=== PATIENT | male | born 1945 | race Caucasian/White ===

== ENCOUNTER 2017-08-13 08:14 | Inpatient (IN) ==
--- NOTE | 2017-08-13 08:51 | Anesthesia Evaluation PreOp ---
Date of Encounter: 08/13/17 Time of Encounter: 08:50
[2017-08-13] MEDS ORDERED: CeFAZolin Syr 2,000MG/20 ML 2,000 MG/20 ML SYRINGE IVPB ONE (09:07)
[2017-08-13] MEDS ORDERED: Heparin 1,000 UNITS/500 mL 500 ML ONE ×2 (09:14→10:04)
[2017-08-13] MEDS ORDERED: Ringers Solution, Lactated 1,000 ML IVC SCH (09:15)
[2017-08-13] MEDS ORDERED: Albuterol 2.5 MG/3 ML NEBULIZER IH ONE ×2 (09:25→14:07)
[2017-08-13] MEDS ORDERED: Albuterol 2.5 MG/3 ML NEBULIZER ONE (09:26)
--- NOTE | 2017-08-13 09:27 | Anesthesia Evaluation PreOp ---
Date of Encounter: 08/13/17 Time of Encounter: 09:25 - Past History Planned Operation: Right CEA Cardiac History: HTN, Hyperlipidemia, Arrhythmia, Cardiac Surgery (CABG 2000), Other (AAA) Pulmonary History: Smoker, Pack/yr (1.5 ppd (down from 3 ppd) x 55 years), COPD (Chronic rep. failure - on Home O2 - used only when he feels like he is short of Breath), Other (Lung nodule) PSYCHOMETRICIAN History: Other (Diabetic Neuropathy) Other Medical History: Hepatic (Hep A 1968), Diabetes Type II, GERD, Other ( Squamous cell CA scalp,) Anesthesia History: No Prior Anesthetic Complications, Past Anesthesia (CABG, finger reattachment) Alcohol Use: none Drug use: none Medications and Allergies Acetaminophen [Tylenol] 325 mg PO Q6HR PRN 08/13/17 [History] Albuterol Sulfate [Albuterol Inhaler] 2 puff IH Q4HR PRN 08/13/17 [History] Aspirin [Lo-Dose Aspirin EC] 81 mg PO DAILY 08/13/17 [History] Atorvastatin [Lipitor] 40 mg PO HS 08/13/17 [History] Budesonide/Formoterol 160/4.5 [Symbicort 160/4.5] 2 puff IH BIDR 08/13/17 [ History] Cholecalciferol (D-3) [Vitamin D] 1,000 unit PO DAILY 08/13/17 [History] Clopidogrel [Plavix] 75 mg PO DAILY 08/13/17 [History] Docusate [Colace] 200 mg PO DAILY 08/13/17 [History] Gabapentin [Neurontin] 900 mg PO BID 08/13/17 [History] Ipratropium/Albuterol Neb [Duoneb] 3 ml IH Q6HR PRN 08/13/17 [History] Losartan [Cozaar] 75 mg PO DAILY 08/13/17 [History] Metformin HCl [Glucophage] 1,000 mg PO BID 08/13/17 [History] Methocarbamol [Robaxin-750] 750 mg PO BID PRN 08/13/17 [History] Metoprolol [Lopressor] 50 mg PO BID 08/13/17 [History] Morphine Immed Rel [Morphine Sulfate] 15 mg PO TID PRN 08/13/17 [History] Multivitamin [One Daily Essential] 1 tab PO DAILY 08/13/17 [History] Pantoprazole Sodium [Protonix] 40 mg PO BID 08/13/17 [History] Tamsulosin [Flomax] 0.4 mg PO DAILY 08/13/17 [History] 3 Allergy/AdvReac Type Severity Reaction Status Date / Time No Known Allergies Allergy Verified 08/13/17 09:35 - Meds/Allergy Pre-op Review Medications Reviewed: Yes Allergies Reviewed: Yes Beta Blockers on Current Med List: Yes If Beta Blockers taken, Date/Time (Last Dose taken): 17:00 08/12/2017 Anesthesia Results - Labs Laboratory Tests 08/11/17 08/11/17 08/11/17 11:33 11:33 11:33 WBC 6.4 Hgb 13.3 Hct 42.0 Plt Count 173 INR 0.9 Sodium 137 Potassium 4.2 Chloride 100 Carbon Dioxide 28 BUN 15 Creatinine 0.96 - Imaging EKG: report reviewed (SR, REBECCA) Chest x-ray: report reviewed Anesthesia Exam O2 Sat Height 1.75 m Height 1.75 m Height 1.75 m Weight 75.75 kg Weight 75.75 kg Weight 75.75 kg O2 Sat by Pulse Oximetry 95 O2 Sat by Pulse Oximetry 95 Vital Signs Temp Pulse Resp BP Pulse Ox 97.9 F 91 18 131/71 95 08/13/17 08:52 08/13/17 08:52 08/13/17 08:52 08/13/17 08:52 08/13/17 08:52 Height: 5'9'' Weight: 167# NPO (# of Hours): > 8 hrs Pain Scale: 0 Pain Scale Used: Numeric (1 - 10) - HEENT Pupil (Motor): Pupils equal, EOMI Mallampati: I Teeth: Normal Oral Opening: Greater than 3 - PSYCHOMETRICIAN LOC: Oriented PSYCHOMETRICIAN Motor: Normal RUE, Normal LUE, Normal RLE, Normal LLE, Normal Face PSYCHOMETRICIAN Sensory: Normal: RUE, LUE, RLE, LLE, Face - Cardiac Rhythm: Regular Murmur: None JVD: No Carotid Bruit: No - Pulmonary Breath Sounds: bilateral Clear Respiratory Effort: Symmetrical - Additional Findings Last dose of Plavix 08/10/2017 Anesthesia Assess/Plan ASA Score: 4 Modified Buckner Scale for Level of Consciousness: Cooperative, oriented, and tranquil Anesthetic Plan: General Autologous Blood: Yes Monitoring Plan: Standard Monitors, A-Line Recovery Plan: PACU
--- NOTE | 2017-08-13 09:42 | History & Physical Report ---
Date of Encounter: 08/13/17 Time of Encounter: 09:41 24 Hour HP Update - Instructions Instructions: If the History and Physical is less than 30 days old and was completed prior to A.M. admission and or procedure and has NOT been updated on calendar day of procedure please complete this update prior to performing procedure. - Update Patient reports changes in Medical Condition: No Changes in examination, assessment, or condition: No Changes in Medication: No Preop tests/diagnostics Reviewed: Yes Surgery Remains Indicated: Yes Consent for Planned Operative Procedure(s) Verified: Yes - Pre-Operative Checklist Preoperative Checklist Indicated: Yes Prophylactic Antibiotic Ordered: Yes Is VTE Prophylaxis Indicated?: Yes
[2017-08-13] MEDS ORDERED: *HR* Propofol 200 MG/20 ML VIAL IVP ONE (09:49)
[2017-08-13] MEDS ORDERED: Ondansetron 4 MG/2 ML VIAL ONE (09:50)
[2017-08-13] MEDS ORDERED: Dexamethasone 4 MG/ML VIAL ONE (09:50)
[2017-08-13] MEDS ORDERED: *HR* Rocuronium Bromide 50 MG/5 ML VIAL ONE ×2 (09:50→11:56)
[2017-08-13] MEDS ORDERED: Lidocaine -MPF 2% 2 ML VIAL ONE (09:50)
[2017-08-13] MEDS ORDERED: *HR* Succinylcholine 200 MG/10 ML VIAL IVP ONE (09:50)
[2017-08-13] MEDS ORDERED: *HR* FentaNYL (PF) 100 MCG/2 ML VIAL ONE (09:52)
[2017-08-13] MEDS ORDERED: *HR* Midazolam HCl 2 MG/2 ML VIAL ONE (09:53)
[2017-08-13] MEDS ORDERED: EPHEDrine 50 MG/ML VIAL ONE (09:54)
[2017-08-13] MEDS ORDERED: Nitroglycerin 0 MG/0 ML INFUS..BTL IVC ONE (10:00)
[2017-08-13] MEDS ORDERED: Lidocaine 1% 20 ML MDV ONE (10:03)
[2017-08-13] MEDS ORDERED: *HR* Remifentanil 2 MG VIAL IVP ONE (10:03)
[2017-08-13] MEDS ORDERED: *HR* Labetalol 20 MG/4 ML SYRINGE IVP PRN (11:32)
[2017-08-13] MEDS ORDERED: *HR* Promethazine 25 MG/ML VIAL IVP PRN (11:32)
[2017-08-13] MEDS ORDERED: *HR* HYDROmorphone (PF) 1 MG/ML SYRINGE IVP PRN (11:32)
[2017-08-13] MEDS ORDERED: *HR* Heparin 5,000 UNIT/ML VIAL ONE ×2 (11:51→12:49)
[2017-08-13] MEDS ORDERED: Neostigmine Methylsulfate 3 MG/3 ML SYRINGE ONE (13:14)
--- NOTE | 2017-08-13 13:49 | Operative Note ---
Date of procedure: 08/13/17 Pre-op diagnosis: bilateral carotid stenosis Post-op diagnosis: same Procedure: right carotid endarterectomy with Hemashield patch angioplasty Complications: none Anesthesia: GETA Surgeon: Shaggy Marin Estimated blood loss (cc): 250 Specimen: none Condition: stable Disposition: PACU Procedure in Detail: History Joe Stoner is a 72-year-old white male who was recently seen in the outpatient clinic for abnormal carotid artery duplex scan and CT angios M of the neck. The patient has multiple ongoing risk factors for vascular disease and in particular tobacco abuse. Upon review of the CT angiogram and also a recent carotid duplex scan the patient was found to have high-grade stenosis bilaterally in the 80-99% range. In addition on the right side he has a very long lesion extending into the distal and midportion of the right common carotid artery. Therefore the patient was recommended to undergo surgery of the right carotid first with the patient to return in the near future for a left carotid endarterectomy. Procedure After informed consent was obtained the patient was taken the operating room. General endotracheal anesthesia was established under arterial line pressure monitoring. The right neck was sterilely prepped and draped. A timeout protocol was observed. An oblique incision was made paralleling the anterior border of the sternocleidomastoid muscle. Dissection was carried down to the carotid sheath. The contents of the carotid sheath were identified and the carotid artery system was selectively dissected and controlled with vessel loops. It should be noted the patient had particularly poor skin turgor and poor turgor of the subcutaneous tissue. The overall coloration was also very planned. As identified on the preoperative CT angiogram the patient had extensive disease of the common carotid artery and so therefore the dissection was carried more proximally. 5000 units of heparin were given intravenously. After a three- minute delay the vessels were clamped with the internal carotid artery clamped first. Using an 11 blade knife and Leong scissors the artery was opened beginning at the distal portion of the common carotid artery. The arteriotomy was extended proximally and distally to include the proximal aspect of the internal carotid artery and into the midportion of the common carotid artery. A shunt could not be placed as the distal true lumen could not be clearly identified and so therefore to avoid any dissection further attempts at placement shunt were abandoned. An endarterectomy was then performed of the common carotid artery for the length of the incision. The carotid bifurcation including the external and superior thyroid were endarterectomized. There was a large portion of calcified plaque at the proximal right internal carotid artery. This was dissected and removed. The patient demonstrated excellent retrograde flow from the internal carotid artery. The bed of the endarterectomized vessel was then inspected for any residual debris. A patch angioplasty was then performed using a Hemashield patch and 6-0 Prolene suture. Leaving a small space open on the patch site the vessels were back flushed and forward flushed. The final few sutures were placed. The external carotid artery was then opened and allowed to fill the shunt. Then the common carotid artery clamp was removed with pulsatile flow now into the right external carotid artery. The patient demonstrated no signs of bleeding or hemodynamic instability and so therefore the internal carotid artery clamp was removed. Again there is no signs of instability. The wound was copiously irrigated with antibiotic containing solution. Hemostasis was achieved. A superficial cervical block using half percent Marcaine was performed. The wound was then closed in layers using absorbable suture. No drains were placed. The patient was extubated in the operating room. He was taken from the operating room to the recovery room in stable condition. He was neurologically intact.
--- NOTE | 2017-08-13 14:28 | Anesthesia Evaluation Post Op ---
Date of Encounter: 08/13/17 Time of Encounter: 14:26 - Vital Signs Vital Signs: Vital Signs/O2 Sat, Most Current Temp Pulse Resp BP Pulse Ox 98 F 73 18 149/71 93 08/13/17 14:00 08/13/17 14:20 08/13/17 14:20 08/13/17 14:20 08/13/17 14:20 - Lungs Lungs: Clear Ascult./Percussion - Airway Airway: Non-obstructed - Cardiovascular Regular Rate - Mental Status Mental Status: Alert & Oriented, Answers Appropriately - Pain Pain Scale: 0 Pain Scale used: Numeric (1 - 10) - Nausea Vomiting Nausea Vomiting: Not Present - Hydration Hydration: Ice chips, Has not voided - Discharge PostOp Status: Transfer Patient to floor
[2017-08-13] MEDS ORDERED: *HR* Morphine Immed Rel 15 MG TABLET PO PRN (14:48)
[2017-08-13] MEDS ORDERED: *HR* Morphine 2 MG/ML SYRINGE IVP PRN ×2 (14:48)
[2017-08-13] MEDS ORDERED: Naloxone 0.4 MG/ML INJ IVP PRN (14:48)
[2017-08-13] MEDS ORDERED: Ipratropium/Albuterol Neb 3 ML IH PRN (14:48)
[2017-08-13] MEDS ORDERED: Methocarbamol 750 MG TABLET PO PRN (14:48)
[2017-08-13] MEDS ORDERED: Acetaminophen 325 MG TABLET PO PRN (14:48)
[2017-08-13] MEDS: Nicotine 21 MG PATCH.TD24 TD SCH (15:20)
[2017-08-13] MEDS: Ondansetron 4 MG/2 ML VIAL IVP PRN (15:20)
[2017-08-13] MEDS: CeFAZolin Premix DUPLEX 2,000 MG/50 ML BAG IVPB SCH ×2 (15:20→23:34)
[2017-08-13] MEDS: Gabapentin 300 MG CAPSULE PO SCH (19:42)
[2017-08-13] MEDS: *HR* Metformin 500 MG TABLET PO SCH (19:42)
[2017-08-13] MEDS: Budesonide/Formoterol 160/4.5 MDI IH SCH (20:55)
[2017-08-14 05:16] LABS: Basophils % 0.4 %; Eosinophils % 0.1 %; Hematocrit 36.2 % (37.5-50.1); Hemoglobin 11.9 g/dL (12.9-16.9); Immature Granulocytes % 0.2 % (0-4); Lymphocytes # 1.2 K/mcL (0.6-4.6); Lymphocytes % 12.6 %; Mean Corpuscular HGB Conc 32.9 g/dL (31.6-35.5); Mean Corpuscular Hemoglobin 29.2 pg (28.0-33.3); Mean Corpuscular Volume 88.9 fL (83.0-100.0); Mean Platelet Volume 10.3 fL (9.4-12.4); Monocytes # 0.9 K/mcL (0.0-1.3); Monocytes % 9.1 %; Neutrophils # 7.5 K/mcL (1.6-8.9); Platelet Count 143 K/mcL (140-400); Red Blood Count 4.07 M/mcL (4.19-5.50); Red Cell Distribution Width 15.5 % (11.5-14.5); Segmented Neutrophils % 77.6 %
[2017-08-14] MEDS: Budesonide/Formoterol 160/4.5 MDI IH SCH (07:46)
[2017-08-14 08:15] LABS: BUN/Creatinine Ratio 11 (6-26); Blood Urea Nitrogen 9 mg/dL (8-26); Calcium 8.6 mg/dL (8.6-10.8); Carbon Dioxide 31 mEq/L (19-29); Chloride 99 mEq/L (98-109); Glucose 119 mg/dL (70-99); Osmolality,Calculated 288 (280-300); Potassium 4.1 mEq/L (3.5-4.5); Sodium 139 mEq/L (136-145); eGFR For African Americans > 60 (> 60); eGFR For Non-African Americans > 60 (> 60)
[2017-08-14] MEDS: CeFAZolin Premix DUPLEX 2,000 MG/50 ML BAG IVPB SCH (08:46)
[2017-08-14] MEDS ORDERED: Multivit/Ca/Min/Fe/FA 1 TAB TABLET PO SCH (09:00)
[2017-08-14] MEDS ORDERED: Cholecalciferol (D-3) 1,000 UNIT TABLET PO SCH (09:00)
[2017-08-14] MEDS ORDERED: Aspirin Enteric Coated 81 MG Tablet PO SCH (09:00)
[2017-08-14] MEDS ORDERED: *HR* Morphine Immed Rel 30 MG TABLET PO PRN (09:15)
[2017-08-14] MEDS: Ondansetron 4 MG/2 ML VIAL IVP PRN (09:30)
[2017-08-14] MEDS: Gabapentin 300 MG CAPSULE PO SCH (10:02)
[2017-08-14] MEDS: *HR* Metformin 500 MG TABLET PO SCH (10:03)
[2017-08-14] MEDS: Nicotine 21 MG PATCH.TD24 TD SCH (10:04)
--- NOTE | 2017-08-14 10:38 | Discharge Summary ---
Date of Encounter: 08/14/17 Time of Encounter: 10:36 - Discharge Diagnosis (1) Bilateral carotid artery stenosis without cerebral infarction Priority: Primary Status: Acute Comments: Patient has abnormal carotid duplex scan and abnormal CT angiogram of the neck. Patient was admitted for right carotid endarterectomy. He will need left carotid endarterectomy in a few weeks. (2) COPD (chronic obstructive pulmonary disease) Priority: Secondary Status: Chronic Comments: Patient under medical management for COPD Qualifiers: COPD type: unspecified COPD Qualified Code(s): J44.9 - Chronic obstructive pulmonary disease, unspecified (3) Coronary artery disease Priority: Secondary Status: Chronic Comments: Patient has a history of coronary artery disease. He is presently under medical management. Qualifiers: Coronary Disease-Associated Artery/Lesion type: [place] artery [place] vs. transplanted heart: [place] heart Associated angina: without angina Qualified Code(s): I25.10 - Atherosclerotic heart disease of [place] coronary artery without angina pectoris - Discharge Medications Home Medications: Acetaminophen [Tylenol] 325 mg PO Q6HR PRN 08/13/17 [History] Albuterol Sulfate [Albuterol Inhaler] 2 puff IH Q4HR PRN 08/13/17 [History] Aspirin [Lo-Dose Aspirin EC] 81 mg PO DAILY 08/13/17 [History] Atorvastatin [Lipitor] 40 mg PO HS 08/13/17 [History] Budesonide/Formoterol 160/4.5 [Symbicort 160/4.5] 2 puff IH BIDR 08/13/17 [ History] Cholecalciferol (D-3) [Vitamin D] 1,000 unit PO DAILY 08/13/17 [History] Clopidogrel [Plavix] 75 mg PO DAILY 08/13/17 [History] Docusate [Colace] 200 mg PO DAILY 08/13/17 [History] Gabapentin [Neurontin] 900 mg PO BID 08/13/17 [History] Ipratropium/Albuterol Neb [Duoneb] 3 ml IH Q6HR PRN 08/13/17 [History] Losartan [Cozaar] 75 mg PO DAILY 08/13/17 [History] Metformin HCl [Glucophage] 1,000 mg PO BID 08/13/17 [History] Methocarbamol [Robaxin-750] 750 mg PO BID PRN 08/13/17 [History] Metoprolol [Lopressor] 50 mg PO BID 08/13/17 [History] Morphine Immed Rel [Morphine Sulfate] 15 mg PO TID PRN 08/13/17 [History] Multivitamin [One Daily Essential] 1 tab PO DAILY 08/13/17 [History] Pantoprazole Sodium [Protonix] 40 mg PO BID 08/13/17 [History] Tamsulosin [Flomax] 0.4 mg PO DAILY 08/13/17 [History] Allergies/Adverse Reactions: 3 Allergy/AdvReac Type Severity Reaction Status Date / Time No Known Allergies Allergy Verified 08/13/17 09:35 Date of admission: 08/13/17 14:36 Primary care physician: Laine Elkins Consults: None Procedure(s) Performed: Right carotid endarterectomy with patch angioplasty Discharging clinician: Shaggy Marin Anticipated date of discharge: 08/14/17 - Patient Status Disposition: Home, Self-Care Condition: Fair Functional capacity at discharge: independent ambulation Overall status at discharge: patient is progressing back to baseline - Discharge Instructions Follow Up With: DARION,PCP [Non-Partnered Physician] - 08/22/17 3:00 pm (This is with the [facility] ) Shaggy Marin MD [Partnered Physician] - 08/27/17 11:45 am Additional Instructions: Keep right neck incision dry for total of 5 days following surgery Resume usual home medications and oxygen as directed. No manual labor. No automobile driving. No lifting greater than 10 pounds. Patient may ambulate inside and outside as tolerated. Patient may use stairs as tolerated. - Diet and Activity Activity: increase activity as tolerated Diet: advance to your usual diet - Hospital Course Hospital course: Mr. Stoner is a 72 year old male With multiple risk factors for vascular disease. He was found to have an abnormal carotid duplex scan. He had a CT interim also performed. The studies were performed earlier in the year. He was eventually referred to my clinic. Upon evaluation of the studies he is recommended to undergo urgent carotid endarterectomy due to the severity of the disease. The patient has high-grade and critical stenosis bilaterally. Because of the extent of the disease the right carotid artery was recommended to be operated upon per first because it extended not only at the bulbar area but into the mid and distal aspects of the common carotid artery. The patient tolerated the procedure well. He was neurologically intact. He was felt fit for discharge on the afternoon of postoperative day #1. Instructions regards to his diet and medications and wound care were reviewed with the patient prior to discharge. - Time Spent with Patient Total time spent providing and/or coordinating discharge services: Exam Vital Signs, Last 4 Hours Temp Pulse Resp BP Pulse Ox 08/14/17 07:24 98 F 66 15 129/76 98 General: Present: Conversant, No Apparent Distress HEENT: Present: Atraumatic Neck: Absent: JVD Cardiac: Present: Normal S1 and S2 Lungs: Present: Decreased breath sounds Neuro: Present: Alert and responsive, No focal deficits noted, Cranial nerves grossly intact, Motor nerves grossly intact, Sensory nerves grossly intact Vascular: Present: Surgical incisions (Right neck incision is clean and dry. There is no right neck hematoma. Trachea is midline.) - VTE Documentation of Mechanical Device: Intermittent pneumatic compression device
[2017-08-14 11:10] VITALS: BP 144/72
== END 2017-08-14 12:18 | disposition home or self-care (01) | DRG 38 ==
LOC: SAMDAY 08:14 → 2NNU 14:36
PROVIDERS: ADMIT Surgery Vascular Surgery; ATTEND Surgery Vascular Surgery

== ENCOUNTER 2017-09-23 08:56 | Inpatient (IN) ==
[2017-09-23] MEDS ORDERED: *HR* Propofol 200 MG/20 ML VIAL IVP ONE (09:09)
[2017-09-23] MEDS ORDERED: *HR* FentaNYL (PF) 100 MCG/2 ML VIAL ONE (09:09)
[2017-09-23] MEDS ORDERED: Water for inj. (sterile) 10 ML IV ONE ×2 (09:10→12:35)
[2017-09-23] MEDS ORDERED: Lidocaine -MPF 2% 2 ML VIAL ONE (09:10)
[2017-09-23] MEDS ORDERED: *HR* Rocuronium Bromide 50 MG/5 ML VIAL ONE (09:10)
--- NOTE | 2017-09-23 09:14 | Anesthesia Evaluation PreOp ---
Date of Encounter: 09/23/17 Time of Encounter: 09:54 - Past History Planned Operation: Left Carotid Endarterectomy Cardiac History: HTN, Hyperlipidemia, Arrhythmia, Cardiac Surgery (CABG x 3) Pulmonary History: Smoker (50+ years), Asthma, COPD (home O2 prn) BLOOD BANK LABORATORY TECHNOLOGIST History: Denies Any Significant HX Other Medical History: Hepatic (H/O hepatitis A), Diabetes Type II, GERD Anesthesia History: No Prior Anesthetic Complications, Past Anesthesia Alcohol Use: none Drug use: none Medications and Allergies Acetaminophen [Tylenol] 325 mg PO Q6HR PRN 08/13/17 [History] Albuterol Sulfate [Albuterol Inhaler] 2 puff IH Q4HR PRN 08/13/17 [History] Aspirin [Lo-Dose Aspirin EC] 81 mg PO DAILY 08/13/17 [History] Atorvastatin [Lipitor] 40 mg PO HS 08/13/17 [History] Budesonide/Formoterol 160/4.5 [Symbicort 160/4.5] 2 puff IH BIDR 08/13/17 [ History] Cholecalciferol (D-3) [Vitamin D] 1,000 unit PO DAILY 08/13/17 [History] Clopidogrel [Plavix] 75 mg PO DAILY 08/13/17 [History] Docusate [Colace] 200 mg PO DAILY 08/13/17 [History] Gabapentin [Neurontin] 900 mg PO BID 08/13/17 [History] Ipratropium/Albuterol Neb [Duoneb] 3 ml IH Q6HR PRN 08/13/17 [History] Losartan [Cozaar] 75 mg PO DAILY 08/13/17 [History] Metformin HCl [Glucophage] 1,000 mg PO BID 08/13/17 [History] Methocarbamol [Robaxin-750] 750 mg PO BID PRN 08/13/17 [History] Metoprolol [Lopressor] 50 mg PO BID 08/13/17 [History] Morphine Immed Rel [Morphine Sulfate] 15 mg PO TID PRN 08/13/17 [History] Multivitamin [One Daily Essential] 1 tab PO DAILY 08/13/17 [History] Pantoprazole Sodium [Protonix] 40 mg PO BID 08/13/17 [History] Tamsulosin [Flomax] 0.4 mg PO DAILY 12/13/17 [History] 3 Allergy/AdvReac Type Severity Reaction Status Date / Time No Known Allergies Allergy Verified 08/13/17 09:35 - Meds/Allergy Pre-op Review Medications Reviewed: Yes Allergies Reviewed: Yes Beta Blockers on Current Med List: Yes If Beta Blockers taken, Date/Time (Last Dose taken): 09/22/2027 at 1830 Anesthesia Results - Labs Laboratory Tests 09/11/17 09/11/17 09/11/17 13:18 13:18 13:18 WBC 7.2 Hgb 11.8 L Hct 37.3 L Plt Count 150 PT 10.2 INR 1.0 APTT 25.1 L Sodium 136 Potassium 4.3 BUN 19 Creatinine 0.88 - Imaging EKG: report reviewed (08/12/2017 , REBECCA) Anesthesia Exam O2 Sat Height 1.75 m Height 1.75 m Height 1.75 m Weight 75.75 kg Weight 75.75 kg Weight 75.75 kg O2 Sat by Pulse Oximetry 94 O2 Sat by Pulse Oximetry 94 Vital Signs Temp Pulse Resp BP Pulse Ox 97.9 F 93 18 148/76 94 09/23/17 09:31 09/23/17 09:31 09/23/17 09:31 09/23/17 09:31 09/23/17 09:31 Height: 5'9" Weight: 167 lbs NPO (# of Hours): 8 Pain Scale: 3 (hips) Pain Scale Used: Numeric (1 - 10) - HEENT Pupil (Motor): EOMI Mallampati: II Teeth: Normal, Missing Denture Type: Upper: Complete Oral Opening: Greater than 3 - BLOOD BANK LABORATORY TECHNOLOGIST LOC: Oriented BLOOD BANK LABORATORY TECHNOLOGIST Motor: Normal RUE, Normal LUE, Normal RLE, Normal LLE, Normal Face BLOOD BANK LABORATORY TECHNOLOGIST Sensory: Normal: RUE, LUE, Face, Deficit: RLE, LLE - Cardiac Rhythm: Regular Murmur: None - Pulmonary Breath Sounds: bilateral Rhonchi Respiratory Effort: Symmetrical Anesthesia Assess/Plan ASA Score: 4 Modified Thais Scale for Level of Consciousness: Cooperative, oriented, and tranquil Anesthetic Plan: General Monitoring Plan: Standard Monitors, A-Line Recovery Plan: PACU
[2017-09-23] MEDS ORDERED: Albuterol 2.5 MG/3 ML NEBULIZER IH ONE (09:23)
[2017-09-23] MEDS ORDERED: CeFAZolin Syr 2,000MG/20 ML 2,000 MG/20 ML SYRINGE IVPB ONE (09:23)
[2017-09-23] MEDS ORDERED: Ringers Solution, Lactated 1,000 ML IVC SCH (09:30)
[2017-09-23] MEDS ORDERED: *HR* Remifentanil 2 MG VIAL IVP ONE (09:39)
--- NOTE | 2017-09-23 11:01 | History & Physical Report ---
Date of Encounter: 09/23/17 Time of Encounter: 11:00 24 Hour HP Update - Instructions Instructions: If the History and Physical is less than 30 days old and was completed prior to A.M. admission and or procedure and has NOT been updated on calendar day of procedure please complete this update prior to performing procedure. - Update Patient reports changes in Medical Condition: No Changes in examination, assessment, or condition: No Changes in Medication: No Preop tests/diagnostics Reviewed: Yes Surgery Remains Indicated: Yes Consent for Planned Operative Procedure(s) Verified: Yes - Pre-Operative Checklist Preoperative Checklist Indicated: Yes Prophylactic Antibiotic Ordered: Yes Home Medications Include Beta Montse: Yes Beta Montse Taken Today (Day of Surgery): Yes Beta Montse Taken Yesterday (Day Prior to Surgery): Yes Is VTE Prophylaxis Indicated?: Yes
[2017-09-23] MEDS ORDERED: Lidocaine 1% 20 ML MDV ONE (11:09)
[2017-09-23] MEDS ORDERED: Heparin 1,000 UNITS/500 mL 1,000 ML ONE (11:09)
[2017-09-23] MEDS ORDERED: ceFAZolin 1,000 MG, Sodium Chloride IRRigation 1,000 ML IR ONE (11:10)
[2017-09-23] MEDS ORDERED: EPHEDrine 50 MG/ML VIAL ONE (11:49)
[2017-09-23] MEDS ORDERED: *HR* Heparin 5,000 UNIT/ML VIAL ONE (12:39)
[2017-09-23] MEDS ORDERED: Neostigmine Methylsulfate 3 MG/3 ML SYRINGE ONE (13:05)
[2017-09-23] MEDS ORDERED: NiCARdipine 2.5 MG/10 ML Syringe IVPB ONE (13:34)
[2017-09-23] MEDS ORDERED: Albuterol 2.5 MG/3 ML NEBULIZER IH PRN (13:35)
[2017-09-23] MEDS ORDERED: *HR* Labetalol 20 MG/4 ML SYRINGE IVP PRN (13:35)
[2017-09-23] MEDS ORDERED: *HR* HYDROmorphone (PF) 1 MG/ML SYRINGE IVP PRN (13:35)
[2017-09-23] MEDS ORDERED: Ondansetron 4 MG/2 ML VIAL IVP PRN ×2 (13:35→16:27)
[2017-09-23] MEDS ORDERED: Dexamethasone 4 MG/ML VIAL ONE (13:53)
[2017-09-23] MEDS ORDERED: Protamine Sulfate 50 MG/5 ML VIAL IVP ONE (14:42)
--- NOTE | 2017-09-23 15:16 | Operative Note ---
Date of procedure: 09/23/17 Pre-op diagnosis: left carotid stenosis Post-op diagnosis: same Procedure: left CEA with 8 Fr shunt and bovine patch angioplasty Complications: 0 Anesthesia: GETA Surgeon: Shaggy Marin Was there an primary teaching assistant present: No Estimated blood loss (cc): 200 Specimen: 0 Condition: stable Disposition: PACU Procedure in Detail: History Joe Salgado is a 72-year-old white male who was identified as having severe carotid artery disease. The patient had undergone angiography and is status post a right carotid endarterectomy approximately 2 months ago. He was found to have a high-grade left carotid lesion and he now comes back to the operating room for correction of this lesion. Procedure After informed consent was obtained the patient was taken to the operating room. General endotracheal anesthesia was established under arterial line pressure monitoring. The left neck was then sterilely prepped and draped. A timeout protocol was observed. An oblique incision was then made anterior to the border of the sternocleidomastoid muscle. Dissection was carried down to open the carotid sheath. The contents of the carotid sheath were identified and the nervous structures were preserved. Selective control was then obtained of the carotid vessels. 5000 units of heparin was then administered intravenously. After a three-minute delay the carotid vessels were clamped with the internal carotid artery clamped first. Using an 11 blade knife and Leong scissors the artery was open. An 8 [place] shunt was then inserted atraumatically. Patency of the shunt was confirmed by the use of intraoperative Doppler. Evaluation of the plaque revealed a diffuse calcific plaque throughout the entire carotid system. There is a high-grade stenosis in the proximal left internal carotid artery. There were no findings of acute thrombus or dissection. There were no findings of intramural hemorrhage. Dissection was then begun at the distal aspect of the common carotid artery. The endarterectomy was then carried circumferentially and then both proximally and distally. The orifice of the superior thyroid as well as the external carotid artery were endarterectomized. The dissection was then carried distally. The endpoint on the internal carotid artery was smooth. No tacking sutures were necessary. The plaque was then removed. The bed of the vessels then inspected for any residual debris. This material was then removed using Chandler pickups. Bed of the vessel was then irrigated copiously with heparinized saline. A bovine pericardial patch angioplasty was then performed using 6-0 Prolene sutures to suture the patch into position. Leaving a small space open on the suture line the shunt was clamped and divided and removed. The final few sutures were placed. Then the internal carotid artery was allowed to back flow and then reclamped. The external and common were opened and finally the internal was reopened. Excellent Doppler signals were identified throughout the carotid system. After hemostasis was achieved and the administration of 10 mg of protamine the wound was copiously irrigated. A superficial cervical block using half percent Marcaine was performed. The wound was then closed in layers using absorbable suture. No drains were placed. A dry sterile dressing was then applied to the incision. The patient was awoken from anesthesia. He was found to be neurologically intact. He was then transported from the operating room to the recovery room in stable condition.
--- NOTE | 2017-09-23 15:58 | Anesthesia Evaluation Post Op ---
Date of Encounter: 09/23/17 Time of Encounter: 15:57 - Vital Signs Vital Signs: Vital Signs/O2 Sat, Most Current Temp Pulse Resp BP Pulse Ox 98.7 F 62 16 146/71 95 09/23/17 15:51 09/23/17 15:51 09/23/17 15:51 09/23/17 15:51 09/23/17 15:51 - Lungs Lungs: Clear Ascult./Percussion - Airway Airway: Non-obstructed - Cardiovascular Regular Rate - Mental Status Mental Status: Alert & Oriented, Answers Appropriately - Pain Pain Scale: 2 (throat) - Nausea Vomiting Nausea Vomiting: Not Present - Hydration Hydration: NPO Notes: 09/23/17 15:57 fully awake, VSS, no anesthetic complications - Discharge PostOp Status: Transfer Patient to floor
[2017-09-23] MEDS ORDERED: Naloxone 0.4 MG/ML INJ IVP PRN (16:27)
[2017-09-23] MEDS ORDERED: Acetaminophen 325 MG TABLET PO PRN (16:27)
[2017-09-23] MEDS ORDERED: *HR* Morphine Immed Rel 30 MG TABLET PO PRN (16:27)
[2017-09-23] MEDS ORDERED: Methocarbamol 750 MG TABLET PO PRN (16:27)
[2017-09-23] MEDS ORDERED: Ondansetron 4 MG/2 ML VIAL ONE (16:32)
[2017-09-23 17:12] LABS: Basophils # 0.1 K/mcL (0.0-0.2); Basophils % 0.5 %; Eosinophils % 0.3 %; Hematocrit 35.1 % (37.5-50.1); Hemoglobin 11.3 g/dL (12.9-16.9); Immature Granulocytes % 0.3 % (0-4); Lymphocytes # 0.8 K/mcL (0.6-4.6); Mean Corpuscular HGB Conc 32.2 g/dL (31.6-35.5); Mean Platelet Volume 10.5 fL (9.4-12.4); Monocytes # 0.4 K/mcL (0.0-1.3); Monocytes % 3.7 %; Neutrophils # 8.5 K/mcL (1.6-8.9); Platelet Count 149 K/mcL (140-400); Red Cell Distribution Width 14.3 % (11.5-14.5); Segmented Neutrophils % 87.2 %
[2017-09-23] MEDS ORDERED: Metoclopramide 10 MG/2 ML VIAL IVP PRN (17:36)
[2017-09-23] MEDS: Nicotine 21 MG PATCH.TD24 TD SCH (18:08)
[2017-09-23] MEDS: CeFAZolin Premix DUPLEX 2,000 MG/50 ML BAG IVPB SCH ×2 (18:08→23:20)
[2017-09-23] MEDS: *HR* Metoprolol 5 MG/5 ML VIAL IVP SCH ×2 (18:08→23:21)
[2017-09-23] MEDS: *HR* Metformin 500 MG TABLET PO SCH (19:49)
[2017-09-23] MEDS: Budesonide/Formoterol 160/4.5 MDI IH SCH (20:03)
[2017-09-23] MEDS: Gabapentin 300 MG CAPSULE PO SCH (21:06)
[2017-09-23] MEDS ORDERED: Ipratropium/Albuterol Neb 3 ML IH PRN (22:00)
[2017-09-24] MEDS: *HR* Metoprolol 5 MG/5 ML VIAL IVP SCH ×2 (05:36→11:40)
[2017-09-24 06:55] LABS: BUN/Creatinine Ratio 13 (6-26); Blood Urea Nitrogen 10 mg/dL (8-23); Calcium 8.4 mg/dL (8.6-10.3); Carbon Dioxide 31 mEq/L (23-29); Chloride 102 mEq/L (98-107); Glucose 119 mg/dL (70-105); Osmolality,Calculated 286 (280-300); Potassium 4.2 mEq/L (3.5-5.1); Sodium 138 mEq/L (136-145); eGFR For African Americans > 60 (> 60); eGFR For Non-African Americans > 60 (> 60)
[2017-09-24] MEDS: Gabapentin 300 MG CAPSULE PO SCH (07:50)
[2017-09-24] MEDS: *HR* Metformin 500 MG TABLET PO SCH (07:50)
[2017-09-24] MEDS: CeFAZolin Premix DUPLEX 2,000 MG/50 ML BAG IVPB SCH (07:51)
[2017-09-24] MEDS: Nicotine 21 MG PATCH.TD24 TD SCH (07:52)
--- NOTE | 2017-09-24 08:28 | Discharge Summary ---
Date of Encounter: 09/24/17 Time of Encounter: 08:26 - Discharge Diagnosis (1) Bilateral carotid artery stenosis without cerebral infarction Priority: Primary Status: Acute Comments: Patient has known carotid artery disease. He is status post a right carotid endarterectomy approximately 2 months ago. He underwent a left carotid endarterectomy yesterday. The patient tolerated the procedure well under general endotracheal anesthesia. He was neurologically intact. He is doing well postoperatively. He is felt fit for discharge later today. (2) COPD (chronic obstructive pulmonary disease) Priority: Secondary Status: Chronic Comments: Patient has chronic obstructive pulmonary disease. He is under medical treatment. Qualifiers: COPD type: unspecified COPD Qualified Code(s): J44.9 - Chronic obstructive pulmonary disease, unspecified (3) Coronary artery disease Priority: Secondary Status: Chronic Comments: Patient has chronic coronary artery disease. He is under medical treatment. Qualifiers: Coronary Disease-Associated Artery/Lesion type: [place] artery [place] vs. transplanted heart: [place] heart Associated angina: without angina Qualified Code(s): I25.10 - Atherosclerotic heart disease of [place] coronary artery without angina pectoris - Discharge Medications Home Medications: Acetaminophen [Tylenol] 325 mg PO Q6HR PRN 08/13/17 [History] Albuterol Sulfate [Albuterol Inhaler] 2 puff IH Q4HR PRN 08/13/17 [History] Aspirin [Lo-Dose Aspirin EC] 81 mg PO DAILY 08/13/17 [History] Atorvastatin [Lipitor] 40 mg PO HS 08/13/17 [History] Budesonide/Formoterol 160/4.5 [Symbicort 160/4.5] 2 puff IH BIDR 08/13/17 [ History] Cholecalciferol (D-3) [Vitamin D] 1,000 unit PO DAILY 08/13/17 [History] Clopidogrel [Plavix] 75 mg PO DAILY 08/13/17 [History] Docusate [Colace] 200 mg PO DAILY 08/13/17 [History] Gabapentin [Neurontin] 900 mg PO BID 08/13/17 [History] Ipratropium/Albuterol Neb [Duoneb] 3 ml IH Q6HR PRN 08/13/17 [History] Losartan [Cozaar] 75 mg PO DAILY 08/13/17 [History] Metformin HCl [Glucophage] 1,000 mg PO BID 08/13/17 [History] Methocarbamol [Robaxin-750] 750 mg PO BID PRN 08/13/17 [History] Metoprolol [Lopressor] 50 mg PO BID 08/13/17 [History] Morphine Immed Rel [Morphine Sulfate] 15 mg PO TID PRN 08/13/17 [History] Multivitamin [One Daily Essential] 1 tab PO DAILY 08/13/17 [History] Pantoprazole Sodium [Protonix] 40 mg PO BID 08/13/17 [History] Tamsulosin [Flomax] 0.4 mg PO DAILY 08/13/17 [History] Allergies/Adverse Reactions: 3 Allergy/AdvReac Type Severity Reaction Status Date / Time No Known Allergies Allergy Verified 09/23/17 09:54 Date of admission: 09/23/17 16:03 Primary care physician: PCP NONE Consults: None Procedure(s) Performed: Left carotid endarterectomy with bovine pericardial patch Discharging clinician: Shaggy Marin Anticipated date of discharge: 09/24/17 - Patient Status Disposition: Home, Self-Care Condition: Good Functional capacity at discharge: independent ambulation Overall status at discharge: patient is progressing back to baseline - Discharge Instructions Follow Up With: THOMAS ORLANDO [Non-Partnered Physician] - 10/02/17 10:30 am ([facility]) Shaggy Marin MD [Partnered Physician] - 10/22/17 8:45 am Additional Instructions: Keep surgical incision site dry for 5 days. Patient may ambulate inside and outside. Patient may use stairs as tolerated. No lifting greater than 10 pounds. No automobile driving. No manual labor. Continue usual home medications. Using incentive spirometer at home for the next 2 weeks 10 times an hour while awake. - Diet and Activity Activity: increase activity as tolerated Diet: low fat, low cholesterol - Hospital Course Hospital course: Mr. Stoner is a 72 year old male With known carotid artery disease. He is status post right carotid endarterectomy about 2 months ago. Patient underwent a left carotid endarterectomy under general endotracheal anesthesia. He had a bovine pericardial patch placed. He had no periprocedural complications. He was neurologically intact postoperatively. He was felt fit for discharge on the afternoon of postoperative day #1. - Time Spent with Patient Total time spent providing and/or coordinating discharge services: Exam Vital Signs, Last 4 Hours Temp Pulse Resp Pulse Ox 09/24/17 07:03 98.6 F 61 18 95 General: Present: No Apparent Distress HEENT: Present: Atraumatic, Trachea midline Neck: Absent: JVD, Tracheal deviation Cardiac: Present: Reg Rate and Rhythm Lungs: Present: Normal Breath Sounds Neuro: Present: Alert and responsive, No focal deficits noted, Cranial nerves grossly intact - VTE Documentation of Mechanical Device: Intermittent pneumatic compression device
[2017-09-24] MEDS ORDERED: Multivit/Ca/Min/Fe/FA 1 TAB TABLET PO SCH (09:00)
[2017-09-24] MEDS ORDERED: Aspirin Enteric Coated 81 MG Tablet PO SCH (09:00)
[2017-09-24] MEDS ORDERED: Cholecalciferol (D-3) 1,000 UNIT TABLET PO SCH (09:00)
[2017-09-24] MEDS: Budesonide/Formoterol 160/4.5 MDI IH SCH (10:03)
[2017-09-24 11:29] VITALS: BP 117/60
== END 2017-09-24 14:32 | disposition home or self-care (01) | DRG 39 ==
LOC: SAMDAY 08:56 → 2NNU 16:03
PROVIDERS: ADMIT Surgery Vascular Surgery; ATTEND Surgery Vascular Surgery